=== PATIENT | female | born 1995 | race Caucasian/White ===

== ENCOUNTER 2024-05-31 22:13 | Emergency (ER) | payer OTHER ==
[~2024-05-31] VITALS: Ht 157.5 cm; Wt 68.0 kg
[2024-05-31 22:17] VITALS: O2SAT 99
[2024-05-31 22:25] VITALS: BP 124/80; PULSE 69; RESP 18; TEMP 36.7; O2SAT 98
[2024-05-31] MEDS ORDERED: NEOM28.38 TP (22:50)
== END 2024-05-31 23:03 | disposition home or self-care (01) ==
LOC: ER 22:13
DX: T23.122A Burn of first degree of single left finger (nail) except thumb, initial encounter (principal); Y92.89 Other specified places as the place of occurrence of the external cause; X10.2XXA Contact with fats and cooking oils, initial encounter; Y93.89 Activity, other specified; Y99.8 Other external cause status
CPT/HCPCS: 16000; 99282